=== PATIENT | male | born 1955 | race Caucasian/White ===

== ENCOUNTER 2018-11-27 13:54 | Outpatient (CLI) | END 2018-11-27 14:16 | disposition short-term general hospital (02) | LOC: AMBL 13:54 | PROVIDERS: ATTEND Internal Medicine | DX: R56.9 Unspecified convulsions (principal); R41.0 Disorientation, unspecified; R00.0 Tachycardia, unspecified; Z85.841 Personal history of malignant neoplasm of brain; R40.2421 Glasgow coma scale score 9-12, in the field [EMT or ambulance]; Z93.0 Tracheostomy status ==